=== PATIENT | female | born 1960 | race African-American/Black ===

== ENCOUNTER 2021-09-27 01:12 | Inpatient (IN) ==
[~2021-09-27 01:12] MED LIST: MORPHINE 2 MG/1 ML SYRINGE IV STA; ONDANSETRON 4 MG/2 ML VIAL IV STA
[2021-09-27 02:10] LABS: Basophils % 0.7 % (0.0-0.8); Eosinophils # 0.2 10*3/uL (0.0-0.87); Eosinophils % 4.1 % (0.00-10.9); Hematocrit 35.3 VOL% (35.7-47.0); Hemoglobin 10.8 GM/DL (12.0-16.0); Immature Granulocytes % 0.5 %; Immature Granulocytes Absolute 0.02 #; Lymphocytes # 0.6 10*3/uL (1.4-4.0); Lymphocytes % 13.4 % (21.3-54.2); Mean Corpuscular HGB Conc 30.6 GM/DL (32-36); Mean Corpuscular Volume 106.6 FL (87-102); Mean Platelet Volume 11.9 FL (9.6-12.0); Monocytes % 4.4 % (1.7-12.7); NRBC # 0.03 10*3/uL; Neutrophils % 76.9 % (38.7-73.9); Platelet Count 102 T/CUMM (130-400); Red Blood Count 3.31 MC/CUMM (3.8-5.5); White Blood Count 4.3 T/CUMM (4-12)
[2021-09-27 02:35] LABS: Albumin 3.7 G/DL (3.4-5.0); Bilirubin,Total 1.3 MG/DL (0.20-1.00); Calcium 9.1 MG/DL (8.5-10.1); Osmolality,Calculated 316.4 MOS/KG (273-304); Potassium 5.4 MMOL/L (3.5-5.1); Total Protein 8.4 G/DL (6.4-8.2)
[2021-09-27] MEDS ORDERED: PIPERACILLIN/TAZOBACTAM 3,375 MG in SODIUM CHLORIDE 0.9% 100 ML IV STA (03:28)
[2021-09-27 04:01] LABS: Bilirubin,Urine Negative (Negative); Blood, Urine Large mg/dL (Negative); Glucose,Urine (UA) Negative (Negative); Ketones,Urine Negative (Negative); Nitrite,Urine Negative (Negative); Protein,Urine 30 MG/DL; Squamous Epithelial Cell,Urine Occasional /HPF (0-10); Urine Appearance Slightly Hazy (Clear); Urine Color Straw (Yellow); Urine Specific Gravity 1.005 (1.001-1.035); Urine Urobilinogen < 2.0 EU/DL (0.2-1.0)
[2021-09-27] MEDS ORDERED: GLUCAGON 1 MG VIAL IM PRN (04:58)
[2021-09-27] MEDS ORDERED: ACETAMINOPHEN 325 MG TABLET PO PRN (04:58)
[2021-09-27] MEDS ORDERED: DEXTROSE 50% 25 GM/50 ML VIAL IV PRN (04:58)
[2021-09-27 06:28] LABS: Albumin 3.7 G/DL (3.4-5.0); Calcium 9.1 MG/DL (8.5-10.1); Osmolality,Calculated 318.2 MOS/KG (273-304); Potassium 5.5 MMOL/L (3.5-5.1)
[2021-09-27 08:45] LABS: INR 1.2; PT Patient Result 13.5 SECS (10.5-12.0)
[2021-09-27] MEDS: APIXABAN 5 MG TABLET PO SCH ×2 (10:15→20:41)
[2021-09-27] MEDS: cefTRIAXone 1,000 MG in SODIUM CHLORIDE 0.9% 100 ML IV SCH (13:38)
[2021-09-27] MEDS ORDERED: PIPERACILLIN/TAZOBACTAM 3,375 MG in SODIUM CHLORIDE 0.9% 100 ML IV SCH (15:00)
[2021-09-28 06:51] LABS: Basophils % 0.8 % (0.0-0.8); Eosinophils # 0.2 10*3/uL (0.0-0.87); Hematocrit 30.8 VOL% (35.7-47.0); Hemoglobin 9.5 GM/DL (12.0-16.0); Immature Granulocytes % 0.4 %; Immature Granulocytes Absolute 0.02 #; Lymphocytes # 0.5 10*3/uL (1.4-4.0); Lymphocytes % 10.4 % (21.3-54.2); Mean Corpuscular HGB Conc 30.8 GM/DL (32-36); Mean Corpuscular Volume 105.5 FL (87-102); Mean Platelet Volume 11.7 FL (9.6-12.0); Monocytes % 3.5 % (1.7-12.7); NRBC # 0.02 10*3/uL; Neutrophils % 80.9 % (38.7-73.9); Platelet Count 93 T/CUMM (130-400); Red Blood Count 2.92 MC/CUMM (3.8-5.5); Red Cell Distribution Width 15.3 % (9.3-17.3); White Blood Count 4.8 T/CUMM (4-12)
[2021-09-28 07:12] LABS: Hypochromasia 1+; Microcytosis 1+; Platelet Estimate Decreased
[2021-09-28 07:20] LABS: Albumin 3.2 G/DL (3.4-5.0); Calcium 8.7 MG/DL (8.5-10.1); Potassium 5.4 MMOL/L (3.5-5.1)
[2021-09-28 07:27] LABS: Bilirubin,Total 1.5 MG/DL (0.20-1.00); Calcium 8.9 MG/DL (8.5-10.1); Potassium 5.3 MMOL/L (3.5-5.1); Total Protein 7.5 G/DL (6.4-8.2)
[2021-09-28 07:28] LABS: Folate 15.52 NG/ML (5.38-24.0)
[2021-09-28] MEDS: SEVELAMER CARBONATE 800 MG TABLET PO SCH ×3 (09:15→16:42)
[2021-09-28] MEDS: APIXABAN 5 MG TABLET PO SCH ×2 (09:15→21:03)
[2021-09-28] MEDS: cefTRIAXone 1,000 MG in SODIUM CHLORIDE 0.9% 100 ML IV SCH (13:06)
[2021-09-28 17:09] LABS: Hepatitis B Core IgM Quant 0.05 Index; Hepatitis B Surface Ag Quant < 0.10 Index; Hepatitis B Surface Ag Result Non-Reactive (NonReactive); Hepatitis C Virus Ab Quant 0.05 Index; Hepatitis C Virus Ab Result Non-Reactive (NonReactive)
[2021-09-28] MEDS ORDERED: HEPARIN 10,000 UNIT/10 ML VIAL IV ONE (18:30)
[2021-09-29] MEDS ORDERED: HEPARIN 10,000 UNIT/10 ML VIAL IV PRN (06:23)
[2021-09-29 06:54] LABS: Calcium 8.3 MG/DL (8.5-10.1); Potassium 4.3 MMOL/L (3.5-5.1)
[2021-09-29] MEDS: SEVELAMER CARBONATE 800 MG TABLET PO SCH ×3 (08:03→17:49)
[2021-09-29] MEDS: APIXABAN 5 MG TABLET PO SCH ×2 (08:03→21:15)
[2021-09-29] MEDS: ASPIRIN CHEW 81 MG TABLET PO SCH (08:03)
[2021-09-29] MEDS: carvediloL 6.25 MG TABLET PO SCH (08:04)
[2021-09-29] MEDS: cefTRIAXone 1,000 MG in SODIUM CHLORIDE 0.9% 100 ML IV SCH (15:00)
[2021-09-29 15:08] LABS: Calcium 8.2 MG/DL (8.5-10.1); Osmolality,Calculated 279.2 MOS/KG (273-304); Potassium 3.8 MMOL/L (3.5-5.1)
[2021-09-30 06:23] LABS: Basophils % 0.7 % (0.0-0.8); Eosinophils # 0.3 10*3/uL (0.0-0.87); Eosinophils % 6.5 % (0.00-10.9); Hematocrit 29.7 VOL% (35.7-47.0); Hemoglobin 9.6 GM/DL (12.0-16.0); Immature Granulocytes % 0.2 %; Immature Granulocytes Absolute 0.01 #; Lymphocytes # 0.5 10*3/uL (1.4-4.0); Lymphocytes % 12.2 % (21.3-54.2); Mean Corpuscular HGB Conc 32.3 GM/DL (32-36); Mean Corpuscular Volume 104.6 FL (87-102); Mean Platelet Volume 11.4 FL (9.6-12.0); NRBC # 0.02 10*3/uL; Neutrophils % 74.4 % (38.7-73.9); Platelet Count 74 T/CUMM (130-400); Red Blood Count 2.84 MC/CUMM (3.8-5.5); Red Cell Distribution Width 15.1 % (9.3-17.3); White Blood Count 4.3 T/CUMM (4-12)
[2021-09-30 06:37] LABS: Calcium 8.4 MG/DL (8.5-10.1); Osmolality,Calculated 274.5 MOS/KG (273-304)
[2021-09-30 06:41] LABS: Hypochromasia 1+; Microcytosis 1+; Platelet Estimate Decreased
[2021-09-30] MEDS: SEVELAMER CARBONATE 800 MG TABLET PO SCH ×2 (12:29→17:32)
[2021-09-30] MEDS: ASPIRIN CHEW 81 MG TABLET PO SCH (12:29)
[2021-09-30] MEDS: APIXABAN 5 MG TABLET PO SCH ×2 (12:30→21:04)
[2021-09-30] MEDS: cefTRIAXone 1,000 MG in SODIUM CHLORIDE 0.9% 100 ML IV SCH (12:30)
[2021-09-30] MEDS: carvediloL 6.25 MG TABLET PO SCH (12:30)
[2021-10-01 05:33] LABS: Basophils % 0.7 % (0.0-0.8); Eosinophils # 0.2 10*3/uL (0.0-0.87); Hematocrit 29.4 VOL% (35.7-47.0); Hemoglobin 9.2 GM/DL (12.0-16.0); Immature Granulocytes % 0.3 %; Immature Granulocytes Absolute 0.01 #; Lymphocytes # 0.6 10*3/uL (1.4-4.0); Lymphocytes % 19.5 % (21.3-54.2); Mean Corpuscular HGB Conc 31.3 GM/DL (32-36); Mean Platelet Volume 11.4 FL (9.6-12.0); Monocytes % 6.6 % (1.7-12.7); NRBC # 0.02 10*3/uL; Neutrophils % 64.9 % (38.7-73.9); Platelet Count 80 T/CUMM (130-400); Red Cell Distribution Width 14.6 % (9.3-17.3); White Blood Count 2.9 T/CUMM (4-12)
[2021-10-01 05:50] LABS: Calcium 8.3 MG/DL (8.5-10.1); Osmolality,Calculated 267.7 MOS/KG (273-304); Potassium 3.7 MMOL/L (3.5-5.1)
[2021-10-01 05:52] LABS: Hypochromasia Slight; Microcytosis Slight; Platelet Estimate Decreased
[2021-10-01] MEDS: ASPIRIN CHEW 81 MG TABLET PO SCH (08:19)
[2021-10-01] MEDS: SEVELAMER CARBONATE 800 MG TABLET PO SCH ×3 (08:19→16:58)
[2021-10-01] MEDS: carvediloL 6.25 MG TABLET PO SCH (08:19)
[2021-10-01] MEDS: APIXABAN 5 MG TABLET PO SCH ×2 (08:19→20:14)
[2021-10-01] MEDS: cefTRIAXone 1,000 MG in SODIUM CHLORIDE 0.9% 100 ML IV SCH (08:21)
[2021-10-02 06:26] LABS: Basophils % 0.7 % (0.0-0.8); Eosinophils # 0.2 10*3/uL (0.0-0.87); Eosinophils % 7.9 % (0.00-10.9); Hematocrit 30.6 VOL% (35.7-47.0); Hemoglobin 9.7 GM/DL (12.0-16.0); Immature Granulocytes % 0.3 %; Immature Granulocytes Absolute 0.01 #; Lymphocytes # 0.7 10*3/uL (1.4-4.0); Lymphocytes % 24.1 % (21.3-54.2); Mean Corpuscular HGB Conc 31.7 GM/DL (32-36); Mean Corpuscular Volume 105.5 FL (87-102); Mean Platelet Volume 11.4 FL (9.6-12.0); Monocytes % 6.9 % (1.7-12.7); NRBC # 0.02 10*3/uL; Neutrophils % 60.1 % (38.7-73.9); Red Cell Distribution Width 14.6 % (9.3-17.3)
[2021-10-02 06:49] LABS: Calcium 8.5 MG/DL (8.5-10.1); Osmolality,Calculated 267.4 MOS/KG (273-304)
[2021-10-02 06:56] LABS: Platelet Count 73 T/CUMM (130-400)
[2021-10-02 07:02] LABS: Anisocytosis 2+; Macrocytosis 1+; Platelet Estimate Decreased; Tear Drop Cells Few
[2021-10-02] MEDS: carvediloL 6.25 MG TABLET PO SCH (08:42)
[2021-10-02] MEDS: cefTRIAXone 1,000 MG in SODIUM CHLORIDE 0.9% 100 ML IV SCH (08:42)
[2021-10-02] MEDS: SEVELAMER CARBONATE 800 MG TABLET PO SCH ×3 (08:42→16:52)
[2021-10-02] MEDS: ASPIRIN CHEW 81 MG TABLET PO SCH (08:42)
[2021-10-02] MEDS: APIXABAN 5 MG TABLET PO SCH ×2 (08:42→20:28)
[2021-10-03 06:25] LABS: Basophils % 0.9 % (0.0-0.8); Eosinophils # 0.2 10*3/uL (0.0-0.87); Eosinophils % 6.2 % (0.00-10.9); Hematocrit 31.4 VOL% (35.7-47.0); Hemoglobin 9.8 GM/DL (12.0-16.0); Immature Granulocytes % 0.3 %; Immature Granulocytes Absolute 0.01 #; Lymphocytes # 0.8 10*3/uL (1.4-4.0); Lymphocytes % 24.1 % (21.3-54.2); Mean Corpuscular HGB Conc 31.2 GM/DL (32-36); Mean Corpuscular Volume 106.1 FL (87-102); Mean Platelet Volume 11.3 FL (9.6-12.0); Monocytes % 6.5 % (1.7-12.7); NRBC # 0.02 10*3/uL; Platelet Count 93 T/CUMM (130-400); Red Blood Count 2.96 MC/CUMM (3.8-5.5); Red Cell Distribution Width 14.3 % (9.3-17.3); White Blood Count 3.2 T/CUMM (4-12)
[2021-10-03 06:43] LABS: Calcium 8.6 MG/DL (8.5-10.1); Osmolality,Calculated 267.8 MOS/KG (273-304); Potassium 4.3 MMOL/L (3.5-5.1)
[2021-10-03 06:48] LABS: Hypochromasia Slight; Microcytosis Slight; Platelet Estimate Decreased
[2021-10-03 07:47] LABS: Total Protein 7.2 G/DL (6.4-8.2)
[2021-10-03] MEDS: cefTRIAXone 1,000 MG in SODIUM CHLORIDE 0.9% 100 ML IV SCH (12:50)
[2021-10-03] MEDS: ASPIRIN CHEW 81 MG TABLET PO SCH (12:50)
[2021-10-03] MEDS: SEVELAMER CARBONATE 800 MG TABLET PO SCH ×3 (12:50→16:27)
[2021-10-03] MEDS: APIXABAN 5 MG TABLET PO SCH ×2 (12:50→22:04)
[2021-10-03] MEDS: carvediloL 6.25 MG TABLET PO SCH (12:51)
[2021-10-04] MEDS ORDERED: SODIUM CHLORIDE 1 GM TABLET PO ONE (08:47)
[2021-10-04] MEDS: ASPIRIN CHEW 81 MG TABLET PO SCH (08:59)
[2021-10-04] MEDS: SEVELAMER CARBONATE 800 MG TABLET PO SCH ×3 (08:59→17:38)
[2021-10-04] MEDS: carvediloL 6.25 MG TABLET PO SCH (08:59)
[2021-10-04] MEDS: APIXABAN 5 MG TABLET PO SCH ×2 (09:00→20:27)
[2021-10-04] MEDS: cefTRIAXone 1,000 MG in SODIUM CHLORIDE 0.9% 100 ML IV SCH (09:00)
[2021-10-05 05:58] LABS: Basophils % 0.6 % (0.0-0.8); Eosinophils # 0.2 10*3/uL (0.0-0.87); Eosinophils % 6.4 % (0.00-10.9); Hematocrit 31.2 VOL% (35.7-47.0); Hemoglobin 9.6 GM/DL (12.0-16.0); Immature Granulocytes % 0.6 %; Immature Granulocytes Absolute 0.02 #; Lymphocytes # 0.8 10*3/uL (1.4-4.0); Lymphocytes % 25.3 % (21.3-54.2); Mean Corpuscular HGB Conc 30.8 GM/DL (32-36); Mean Corpuscular Volume 105.1 FL (87-102); Mean Platelet Volume 11.2 FL (9.6-12.0); Monocytes % 8.3 % (1.7-12.7); Neutrophils % 58.8 % (38.7-73.9); Platelet Count 87 T/CUMM (130-400); Red Blood Count 2.97 MC/CUMM (3.8-5.5); Red Cell Distribution Width 14.5 % (9.3-17.3); White Blood Count 3.1 T/CUMM (4-12)
[2021-10-05 06:22] LABS: Eosinophils 8 % (0-10); Lymphocytes 19 % (20-55); Nucleated Red Blood Cells 1 (0-5); Segmented Neutrophils 66 % (50-85); Total Cells Counted 100
[2021-10-05 06:23] LABS: Hypochromasia Slight; Macrocytosis 1+; Ovalocytes Slight; Platelet Estimate Decreased
[2021-10-05 06:35] LABS: Calcium 8.6 MG/DL (8.5-10.1); Osmolality,Calculated 263.4 MOS/KG (273-304); Potassium 4.2 MMOL/L (3.5-5.1)
[2021-10-05 07:20] LABS: Immunoglobulin A (Chem) 106 MG/DL (70-400); Immunoglobulin G (Chem) 2000 MG/DL (700-1600); Immunoglobulin M (Chem) 26 MG/DL (40-230); Random Urine Protein (Bench) 293 MG/DL (<11.9); Total Protein (Chem) 7.2 G/DL (6.4-8.3)
[2021-10-05 09:47] LABS: Albumin (SPE) 4.1 G/DL (3.2-5.3); Albumin (SPE) Rel % 57.1 %; Alpha 1 (SPE) 0.2 G/DL (0.1-0.4); Alpha 1 (SPE) Rel % 2.9 %; Alpha 2 (SPE) 0.6 G/DL (0.4-1.0); Alpha 2 (SPE) Rel % 8.8 %; Beta (SPE) 0.5 G/DL (0.5-1.1); Beta (SPE) Rel % 7.6 %; Gamma (SPE) Rel % 23.6 %
[2021-10-05 09:50] LABS: Albumin (UPER) 132.7 MG/DL; Albumin (UPER) Rel% 45.3 %; Alpha 1 (UPER) 34.6 MG/DL; Alpha 1 (UPER) Rel% 11.8 %; Alpha 2 (UPER) 22.6 MG/DL; Alpha 2 (UPER) Rel % 7.7 %; Beta (UPER) 34.9 MG/DL; Beta (UPER) Rel % 11.9 %; Gamma (UPER) Rel % 23.3 %
[2021-10-05 09:51] LABS: Gamma (SPE) 1.7 G/DL (0.7-1.7)
[2021-10-05 09:52] LABS: Gamma (UPER) 68.3 MG/DL
[2021-10-05] MEDS: carvediloL 6.25 MG TABLET PO SCH (10:48)
[2021-10-05] MEDS: ASPIRIN CHEW 81 MG TABLET PO SCH (10:48)
[2021-10-05] MEDS: SEVELAMER CARBONATE 800 MG TABLET PO SCH ×3 (10:48→18:54)
[2021-10-05] MEDS: APIXABAN 5 MG TABLET PO SCH ×2 (10:48→22:32)
[2021-10-05] MEDS: POLYETHYLENE GLYCOL POWDER 17 GM PACK PO SCH (10:52)
[2021-10-06] MEDS: SEVELAMER CARBONATE 800 MG TABLET PO SCH ×2 (09:13→15:33)
[2021-10-06] MEDS: ASPIRIN CHEW 81 MG TABLET PO SCH (09:14)
[2021-10-06] MEDS: APIXABAN 5 MG TABLET PO SCH (09:14)
[2021-10-06] MEDS: POLYETHYLENE GLYCOL POWDER 17 GM PACK PO SCH (09:14)
[2021-10-06] MEDS: carvediloL 6.25 MG TABLET PO SCH (09:14)
[2021-10-06 10:14] LABS: Basophils % 1.1 % (0.0-0.8); Eosinophils # 0.2 10*3/uL (0.0-0.87); Eosinophils % 6.7 % (0.00-10.9); Hematocrit 30.7 VOL% (35.7-47.0); Hemoglobin 9.8 GM/DL (12.0-16.0); Immature Granulocytes % 0.4 %; Immature Granulocytes Absolute 0.01 #; Lymphocytes # 0.7 10*3/uL (1.4-4.0); Lymphocytes % 22.9 % (21.3-54.2); Mean Corpuscular HGB Conc 31.9 GM/DL (32-36); Mean Platelet Volume 11.1 FL (9.6-12.0); Monocytes % 6.7 % (1.7-12.7); Neutrophils % 62.2 % (38.7-73.9); Platelet Count 95 T/CUMM (130-400); Red Blood Count 3.01 MC/CUMM (3.8-5.5); Red Cell Distribution Width 14.6 % (9.3-17.3); White Blood Count 2.8 T/CUMM (4-12)
[2021-10-06 10:30] LABS: Albumin 2.8 G/DL (3.4-5.0); Bilirubin,Total 0.6 MG/DL (0.20-1.00); Calcium 8.7 MG/DL (8.5-10.1); Osmolality,Calculated 272.1 MOS/KG (273-304); Potassium 4.4 MMOL/L (3.5-5.1); Total Protein 7.3 G/DL (6.4-8.2)
[2021-10-06 10:42] LABS: Hypochromasia 1+
[2021-10-06 10:43] LABS: Microcytosis 1+; Ovalocytes Slight; Platelet Estimate Decreased; Polychromasia Slight
[2021-10-06 17:30] VITALS: BP 134/80
[2021-10-09 09:46] LABS: Immuno Free Light Chain Kappa 40.52 MG/DL (0.33-1.94); Immuno Free Light Chain Lambda 6.06 MG/DL (0.57-2.63); Immuno Free Light Chain Ratio 6.69 MG/DL (0.26-1.65)
== END 2021-10-06 17:35 | disposition home or self-care (01) | DRG 683 ==
LOC: N.ED 01:12 → N.EDINP 04:59 → SUATTDRO 04:59 → N.EDINP 07:00 → N.5E 07:48
PROVIDERS: ADMIT Internal Medicine; ATTEND Internal Medicine